=== PATIENT | male | born 1955 ===

== ENCOUNTER 2020-01-15 12:41 | Emergency (ER) | payer OTHER ==
[~2020-01-15] VITALS: Ht 185.4 cm; Wt 100.0 kg
[2020-01-15 13:50] LABS: BASOPHILS % (AUTO) 1 % (0-1); EOSINOPHILS % (AUTO) 0 % (1-7); LYMPHOCYTES % (AUTO) 9 % (22-44); MD NO; MEAN CORPUSCULAR HEMOGLOBIN 32.1 pg (27.5-34.5); MEAN CORPUSCULAR HGB CONC 34.1 g/dL (33.2-36.2); MEAN PLATELET VOLUME 8.9 fL (7.4-10.4); MONOCYTES % (AUTO) 11 % (2-9); NEUTROPHILS % (AUTO) 79 % (42-75); PLATELET COUNT 157 x10^3/uL (130-400); RED BLOOD COUNT 5.29 x10^6/uL (4.38-5.82); RED CELL DISTRIBUTION WIDTH 12.9 % (9.4-14.8)
[2020-01-15 14:02] LABS: ALBUMIN 3.5 g/dL (3.4-5.0); ANION GAP 7 mmol/L (5-15); CALCIUM 8.3 mg/dL (8.5-10.1); CHLORIDE 101 mmol/L (98-107)
[2020-01-15 14:08] LABS: D-DIMER (DIC) 0.28 ug/mlFEU (0.00-0.52); PROTIME 10.9 Seconds (9.6-11.5)
[2020-01-15 14:09] LABS: ALANINE AMINOTRANSFERASE 47 U/L (12-78); ALKALINE PHOSPHATASE 76 U/L (45-117); C-REACTIVE PROTEIN, QUANT 3.73 mg/dL (0.02-0.49); CREATININE 1.09 mg/dL (0.7-1.3)
[2020-01-15] MEDS ORDERED: BAMLANIVIMAB 700 MG in SODIUM CHLORIDE 0.9% 250 ML IVPB ONE (14:30)
[2020-01-15] MEDS ORDERED: AZITHROMYCIN 500 MG in SODIUM CHLORIDE 0.9% 250 ML IV ONE (14:30)
[2020-01-15] MEDS ORDERED: CEFTRIAXONE PMX 1GM/50ML 50 ML IV ONE (14:30)
[2020-01-15] MEDS ORDERED: FILTER 0.22 MICRON IV ONE (14:30)
[2020-01-15] MEDS ORDERED: CEFTRIAXONE PMX 1GM/50ML 50 ML ONE (14:52)
[2020-01-15] MEDS ORDERED: DEXAMETHASONE 4 MG TABLET PO ONE (15:00)
[2020-01-15] MEDS ORDERED: DEXAMETHASONE 4 MG/ML, 5ML ONE (15:07)
--- NOTE | 2020-01-15 16:04 | NUR ---
TASK RN: PT BREATHING EVEN AND UNLABORED WHILE RESTING IN [facility]. MEDICATION INFUSING NOTED ON MAR
[2020-01-15 17:43] VITALS: BP 111/66
== END 2020-01-15 17:46 | disposition home or self-care (01) ==
LOC: ED 13:20
DX: U07.1 COVID-19 (principal); J18.8 Other pneumonia, unspecified organism; R94.31 Abnormal electrocardiogram [ECG] [EKG]; I10 Essential (primary) hypertension; E11.9 Type 2 diabetes mellitus without complications
CPT/HCPCS: 36415; 71045; 80053; 82728; 83605; 83615; 84145; 85025; 85049; 85379; 85384; 85610; 85730; 86140; 87040; 93005; 96365; 99285; J0456; J0696; J7050; M0239; Q0239